=== PATIENT | male | born 2000 | race Two or more races ===

== ENCOUNTER 2018-04-16 14:25 | Emergency (ER) | payer BC, MEDICAID ==
--- NOTE | 2018-04-16 14:50 | ER Document Report ---
ED Medical Screen (RME) - General Chief Complaint: Vomiting Stated Complaint: ABDOMINAL PAIN Time Seen by Provider: 04/16/18 14:41 TRAVEL OUTSIDE OF THE [place] IN LAST 30 DAYS: No - HPI Patient complains to provider of: Abdominal pain Onset: Other - 17-year-old otherwise healthy man who took 4 tablets of Excedrin yesterday evening began to have bad abdominal pain around 2 AM this morning, he thereafter had a episode in which he vomited bright red blood, he has had persistent abdominal pain since that time. He is never had any problems like this before - Related Data Allergies/Adverse Reactions: No Known Allergies Allergy (Verified 04/16/18 14:48) Past Medical History - Social History Chew tobacco use (# tins/day): No Frequency of alcohol use: None Drug Abuse: None Renal/ Medical History: Denies: Hx Peritoneal Dialysis - Immunizations Immunizations up to date: Yes Physical Exam - Vital signs Vitals: Temp Pulse Resp BP Pulse Ox 98.5 F 63 16 142/78 H 100 04/16/18 14:38 04/16/18 14:38 04/16/18 14:38 04/16/18 14:38 04/16/18 14:38 Course - Re-evaluation Re-evalutation: 04/16/18 14:49 This is a 17-year-old with an episode of hematemesis after having taken Excedrin last night. I have greeted and performed a rapid initial assessment of this patient. A comprehensive ED assessment and evaluation of the patient, analysis of test results and completion of the medical decision making process will be conducted by additional ED providers - Vital Signs Vital signs: Temp Pulse Resp BP Pulse Ox 98.5 F 63 16 142/78 H 100 04/16/18 14:38 04/16/18 14:38 04/16/18 14:38 04/16/18 14:38 04/16/18 14:38
[2018-04-16 15:25] LABS: ABSOLUTE BASOPHILS # (AUTO) 0.1 10^3/uL (0.0-0.2); ABSOLUTE LYMPHOCYTES (AUTO) 1.9 10^3/uL (0.5-4.7); ABSOLUTE MONOCYTES (AUTO) 1.3 10^3/uL (0.1-1.4); ABSOLUTE NEUT (AUTO) 6.6 10^3/uL (1.7-8.2); BASOPHILS % (AUTO) 0.5 % (0-2); EOSINOPHILS % (AUTO) 0.3 % (0-6); HEMATOCRIT 42.8 % (37.9-51.0); HEMOGLOBIN 14.6 g/dL (13.5-17.0); LYMPHOCYTES % (AUTO) 19.4 % (13-45); MEAN CORPUSCULAR HEMOGLOBIN 29.7 pg (27.0-33.4); MEAN CORPUSCULAR HGB CONC 34.2 g/dL (32.0-36.0); MEAN CORPUSCULAR VOLUME 87 fl (80-97); MONOCYTES % (AUTO) 13.4 % (3-13); PLATELET COUNT 259 10^3/uL (150-450); RED BLOOD COUNT 4.93 10^6/uL (4.35-5.55); RED CELL DISTRIBUTION WIDTH 14.4 % (11.5-14.0); SEGMENTED NEUTROPHILS % (AUTO) 66.4 % (42-78); TOTAL CELLS COUNTED % (AUTO) 100 %
--- NOTE | 2018-04-16 15:26 | RADIOLOGY REPORT (SQ) ---
EXAM DESCRIPTION: CHEST SINGLE VIEW COMPLETED DATE/TIME: 04/16/2018 3:17 pm REASON FOR STUDY: concern for air under diaphragm COMPARISON: None. EXAM PARAMETERS: NUMBER OF VIEWS: One view. TECHNIQUE: Single frontal radiographic view of the chest acquired. RADIATION DOSE: NA LIMITATIONS: None. FINDINGS: LUNGS AND PLEURA: No opacities, masses or pneumothorax. No pleural effusion. MEDIASTINUM AND HILAR STRUCTURES: No masses. Contour normal. HEART AND VASCULAR STRUCTURES: Heart normal in size. Normal vasculature. BONES: No acute findings. HARDWARE: None in the chest. OTHER: No other significant finding. IMPRESSION: NO ACUTE RADIOGRAPHIC FINDING IN THE CHEST. TECHNICAL DOCUMENTATION: JOB ID: [id number] [employer]- All Rights Reserved Reading location - IP/workstation name: [email or web address]
[2018-04-16 15:43] LABS: ALANINE AMINOTRANSFERASE 40 U/L (10-40); ALBUMIN 4.5 g/dL (3.7-5.6); ALKALINE PHOSPHATASE 91 U/L (65-260); ANION GAP 12 (5-19); ASPARTATE AMINO TRANSFERASE 52 U/L (10-45); BILIRUBIN,DIRECT 0.1 mg/dL (0.0-0.4); BILIRUBIN,TOTAL 0.6 mg/dL (0.2-1.3); BLOOD UREA NITROGEN 14 mg/dL (7-20); CALCIUM 10.2 mg/dL (8.4-10.2); CARBON DIOXIDE 26 mmol/L (22-30); CHLORIDE 104 mmol/L (98-107); GLUCOSE 90 mg/dL (75-110); LIPASE 65.4 U/L (23-300); POTASSIUM 4.3 mmol/L (3.6-5.0); SODIUM 141.6 mmol/L (137-145); TOTAL PROTEIN 7.5 g/dL (6.3-8.2)
--- NOTE | 2018-04-16 15:43 | ER Document Report ---
ED General - General TRAVEL OUTSIDE OF THE [place] IN LAST 30 DAYS: No <SOFY CORONA - Last Filed: 04/16/18 19:02> <NUPUR OBRIEN - Last Filed: 04/16/18 23:33> - General Chief Complaint: Vomiting Stated Complaint: ABDOMINAL PAIN Time Seen by Provider: 04/16/18 14:41 - HPI Notes: Patient is a 17-year-old male with no significant past medical history who presents to the ED with concern of intermittent lower abdominal cramping with occasional sharp pain, one episode of hematemesis over the last day. Patient states that his episode of emesis took place this morning. Patient states that he did take a total of 4 tablets of Excedrin yesterday 2 of which were right before he went to bed. Patient states that after he woke up in the morning he had a pain in his lower mid abdomen which resulted in the nausea and vomiting x1. Patient states that he saw a small clump of blood in his vomit. He has not been nauseous or had any vomiting since. He has not had any black or tarry stools. Patient states that his stools are hard, small, and has bowel movements every other day. Patient states that his last bowel movement was this morning and he does have to "push." Patient states that he has been eating and drinking without any difficulties otherwise. He is urinating normally and is not sexually active. Denies drug allergies. Denies any headache, fever, neck pain, URI, sore throat, chest pain, palpitations, syncope , cough, shortness of breath, wheeze, dyspnea, diarrhea, urinary retention, dysuria, hematuria, back pain, loss of control of bowel or bladder, numbness/ tingling, saddle anesthesia, muscle paralysis/weakness, or rash. (SOFY CORONA) - Related Data Allergies/Adverse Reactions: No Known Allergies Allergy (Verified 04/16/18 14:48) Past Medical History - Social History Smoking Status: Never Smoker Chew tobacco use (# tins/day): No Frequency of alcohol use: None Drug Abuse: None Family History: Reviewed & Not Pertinent Patient has suicidal ideation: No Patient has homicidal ideation: No Renal/ Medical History: Denies: Hx Peritoneal Dialysis - Immunizations Immunizations up to date: Yes <SOFY CORONA - Last Filed: 04/16/18 19:02> Review of Systems - Review of Systems -: Yes All other systems reviewed and negative <SOFY CORONA - Last Filed: 04/16/18 19:02> Physical Exam <SOFY CORONA - Last Filed: 04/16/18 19:02> <NUPUR OBRIEN - Last Filed: 04/16/18 23:33> - Vital signs Vitals: Temp Pulse Resp BP Pulse Ox 98.5 F 63 16 142/78 H 100 04/16/18 14:38 04/16/18 14:38 04/16/18 14:38 04/16/18 14:38 04/16/18 14:38 - Notes Notes: PHYSICAL EXAMINATION: GENERAL: Well-appearing, well-nourished and in no acute distress. A&Ox4. Answers questions appropriately. HEAD: Atraumatic, normocephalic. EYES: Pupils equal round and reactive to light, extraocular movements intact, sclera anicteric, conjunctiva are normal. ENT: Nares patent and without discharge. oropharynx clear without exudates. No tonsilar hypertrophy or erythema. Moist mucous membranes. NECK: Normal range of motion, supple without lymphadenopathy LUNGS: Breath sounds clear to auscultation bilaterally and equal. No wheezes rales or rhonchi. HEART: Regular rate and rhythm without murmurs, rubs, gallops. ABDOMEN: Soft, nondistended abdomen. No guarding, no rebound. No masses appreciated. Normal bowel sounds present. + mild mid abd tenderness. No obvious tenderness at McBurney. Neg montejo. + mild left>Rt CVA tenderness. Musculoskeletal: FROM to passive/active. Strength 5+/5. Extremities: No cyanosis, clubbing, or edema b/l. Peripheral pulses 2+. Capillary refill less than 3 seconds. NEUROLOGICAL: Normal speech, normal gait. Normal sensory, motor exams PSYCH: Normal mood, normal affect. SKIN: Warm, Dry, normal turgor, no rashes or lesions noted. (SOFY CORONA) Course - Laboratory Result Diagrams: 04/16/18 14:58 04/16/18 17:30 <SOFY CORONA - Last Filed: 04/16/18 19:02> - Laboratory Result Diagrams: 04/16/18 14:58 04/16/18 17:30 <NUPUR OBRIEN - Last Filed: 04/16/18 23:33> - Re-evaluation Re-evalutation: 04/16/18 16:[address] Lopez. Pt's abd is soft and minimally tender to the mid abd/suprapubic area. He does have some mild CVA tenderness. His Creatinine is 1.52 and GFR 59. Sp [place] is 1.004 with small blood. His pain is not unilateral flank. He is non-toxic appearing and tolerating PO. We will start an IV and give 2L fluid and recheck BMP/Re-eval patient. 04/16/18 17:18 Re-eval on patient after 2L fluid given. Pt is having worsening RLQ specific pain. + tenderness near McBurney point. We will obtain an abd CT with oral/iv and recheck BMP to further evaluate. Dr. Lopez in agreement with plan. 04/16/18 19:02 Care transfer to [facility] (SOFY CORONA) CT shows signs of cholecystitis, ultrasound ordered. 04/16/18 22:[address] and ultrasound results with Dr. Zoe Barnhart via phone who states there is no signs of cholecystitis. 04/16/18 23:[address] Jeffrey who agrees with d/c with close follow up. Mother states patient does not have a primary care provider, phone numbers will be given. Discussed with mother need for follow-up in the next 24-48 hours for abdominal recheck. Discussed also returning to the emergency room should the abdominal pain return. Patient currently states he has no abdominal pain, is also not nauseated. (NUPUR OBRIEN) - Vital Signs Vital signs: Temp Pulse Resp BP Pulse Ox 98.7 F 59 L 16 133/79 H 100 04/16/18 19:18 04/16/18 19:18 04/16/18 19:18 04/16/18 19:18 04/16/18 19:18 - Laboratory Laboratory results interpreted by me: 04/16/18 04/16/18 04/16/18 14:58 14:58 14:58 RDW 14.4 H Monocytes % 13.4 H Chloride Creatinine 1.52 H Est GFR (Non-Af Amer) 59 L AST 52 H Urine Blood Acetaminophen < 10 L 04/16/18 04/16/18 15:30 17:30 RDW Monocytes % Chloride 111 H Creatinine 1.32 H Est GFR (Non-Af Amer) AST Urine Blood SMALL H Acetaminophen Discharge <SOFY CORONA - Last Filed: 04/16/18 19:02> <YI OBRIENCHIQUITAEVAALEC - Last Filed: 04/16/18 23:33> - Discharge Clinical Impression: Abdominal pain Qualifiers: Abdominal location: right lower quadrant Qualified Code(s): R10.31 - Right lower quadrant pain Condition: Stable Disposition: HOME, SELF-CARE Instructions: Abdominal Pain ([facility]), Observation for Appendicitis ([facility]) Additional Instructions: As we discussed you must be seen by a primary care provider in the next 24-48 hours for abdominal recheck. Please return to the emergency room should you have any worsening abdominal pain. Return to the emergency room for any other concerning symptoms. Referrals: ALLEN COWAN MD [ACTIVE STAFF] - Follow up as needed
[2018-04-16 15:46] LABS: APPEARANCE,URINE CLEAR; BILIRUBIN,URINE NEGATIVE (NEGATIVE); COLOR,URINE COLORLESS; GLUCOSE, URINE NEGATIVE (NEGATIVE); KETONES,URINE NEGATIVE (NEGATIVE); LEUKOCYTE ESTERASE,URINE NEGATIVE (NEGATIVE); NITRITE,URINE NEGATIVE (NEGATIVE); PROTEIN,URINE NEGATIVE (NEGATIVE); URINE SPECIFIC GRAVITY 1.004; UROBILINOGEN,URINE NEGATIVE mg/dL (<2.0)
--- NOTE | 2018-04-16 15:46 | RADIOLOGY REPORT (SQ) ---
EXAM DESCRIPTION: KUB/ABDOMEN (SINGLE VIEW) COMPLETED DATE/TIME: 04/16/2018 3:26 pm REASON FOR STUDY: constipated mid abdominal pain, vomiting COMPARISON: None. NUMBER OF VIEWS: One view. TECHNIQUE: Supine radiographic image of the abdomen acquired. LIMITATIONS: None. FINDINGS: BOWEL GAS PATTERN: Normal bowel gas pattern. No dilated loops. Minimal stool in the ascen ding colon. CALCIFICATIONS: No suspicious calcifications. SOFT TISSUES: No gross mass or suggestion of organomegaly. HARDWARE: None in the abdomen. BONES: No acute fracture. No worrisome bone lesions. OTHER: No other significant finding. IMPRESSION: NO RADIOGRAPHIC EVIDENCE FOR ACUTE ABDOMINAL DISEASE. NO CONSTIPATION TECHNICAL DOCUMENTATION: JOB ID: [id number] [email or web address]- All Rights Reserved Reading location - IP/workstation name: [email or web address]
[2018-04-16 16:31] LABS: INTERNATIONAL RATION (INR) 0.97; PROTHROMBIN TIME 13.4 SEC (11.4-15.4)
[2018-04-16 16:32] LABS: PARTIAL THROMBOPLASTIN TIME 29.5 SEC (23.5-35.8)
[2018-04-16] MEDS: NORMAL SALINE 1000 ML 1,000 ML IV PRN ×2 (16:49→16:50)
[2018-04-16 17:52] LABS: ANION GAP 7 (5-19); BLOOD UREA NITROGEN 13 mg/dL (7-20); CALCIUM 8.8 mg/dL (8.4-10.2); CARBON DIOXIDE 22 mmol/L (22-30); CHLORIDE 111 mmol/L (98-107); GLUCOSE 85 mg/dL (75-110); POTASSIUM 4.6 mmol/L (3.6-5.0); SODIUM 140.3 mmol/L (137-145)
[2018-04-16] MEDS ORDERED: ONDANSETRON HCL INJ/PF 4 MG/2 ML SDV IV ONE (18:42)
[2018-04-16] MEDS ORDERED: KETOROLAC TROMETHAMINE INJ/PF 30 MG/1 ML SDV IV ONE (18:42)
--- NOTE | 2018-04-16 20:48 | RADIOLOGY REPORT (SQ) ---
EXAM DESCRIPTION: CT ABD/PELVIS WITH IV ORAL COMPLETED DATE/TIME: 04/16/2018 8:19 pm REASON FOR STUDY: RLQ pain COMPARISON: None. TECHNIQUE: CT scan of the abdomen and pelvis performed using helical scanning technique with dynamic intravenous contrast injection. No oral contrast. Images reviewed with lung, soft tissue, and bone windows. Reconstructed coronal and sagittal MPR images reviewed. Delayed images for evaluation of the urinary system also acquired. All images stored on PACS. All CT scanners at this facility use dose modulation, iterative reconstruction, and/or weight based d osing when appropriate to reduce radiation dose to as low as reasonably achievable (ALARA). [facility]: Dose Right [facility]: CareDose [facility]: Dose Right [facility]: Teradose 4D [facility]: ecoVent CONTRAST TYPE AND DOSE: contrast/concentration: Isovue 350.00 mg/ml; Total Contrast Delivered: 79.0 ml; Total Saline Delivered: 68.0 ml RENAL FUNCTION: BUN 14; creatinine 1.52 RADIATION DOSE: CT Rad equipment meets quality standard of care and radiation dose reduction techniq ues were employed. CTDIvol: 5.2 - 6.6 mGy. DLP: 641 mGy-cm.. LIMITATIONS: None. FINDINGS: LOWER CHEST: No significant findings. No nodules or infiltrates. LIVER: Normal size. No masses. No dilated ducts. SPLEEN: Normal size. No focal lesions. PANCREAS: No masses. No significant calcifications. No adjacent inflammation or peripancreatic fluid collections. Pancreatic duct not dilated. GALLBLADDER: No identified stones by CT criteria. Note is made of pericholecystic fluid without defi nite mural thickening or hyperemia. ADRENAL GLANDS: No significant masses or asymmetry. RIGHT KIDNEY AND URETER: No solid masses. No significant calcifications. No hydronephrosis or hyd roureter. LEFT KIDNEY AND URETER: No solid masses. No significant calcifications. No hydronephrosis or hydr oureter. AORTA AND VESSELS: No aneurysm. No dissection. Renal arteries, SMA, celiac without stenosis. RETROPERITONEUM: No retroperitoneal adenopathy, hemorrhage or masses. BOWEL AND PERITONEAL CAVITY: No masses or inflammatory changes. No free fluid or peritoneal masses. APPENDIX: Normal. PELVIS: No mass. No free fluid. Normal bladder. ABDOMINAL WALL: No masses. No hernias. BONES: No significant or acute findings. OTHER: No other significant finding. IMPRESSION: Fluid seen within the gallbladder fossa suggests cholecystitis. No infectious/ inflamma tory findings within the right lower quadrant. The appendix is well visualized and normal in appeara nce. TECHNICAL DOCUMENTATION: JOB ID: [id number] Quality ID # [id number]: Final reports with documentation of one or more dose reduction techniques (e.g., Au tomated exposure control, adjustment of the mA and/or kV according to patient size, use of iterative reconstruction technique) 2010 [employer]- All Rights Reserved Reading location - IP/workstation name: [email or web address]
--- NOTE | 2018-04-16 21:54 | RADIOLOGY REPORT (SQ) ---
EXAM DESCRIPTION: US ABDOMEN DOPPLER LIMITED COMPLETED DATE/TME: 04/16/2018 21:01 CLINICAL HISTORY: 17 years, Male, RUQ pain Findings: Pancreas is within normal limits. Aorta and IVC are within normal limits. Liver is unremarkable with no focal lesions. Portal vein is patent with hepatopedal flow. Gallbladder is unremarkable with no evidence for calculus, wall thickening or pericholecystic fluid. No significant biliary dilatation with CBD measuring 2 mm. No right hydronephrosis. No right upper quadrant ascites. IMPRESSION: No evidence for cholelithiasis or cholecystitis.
[2018-04-16 23:41] VITALS: BP 135/73
== END 2018-04-16 23:41 | disposition home or self-care (01) ==
LOC: ER 14:25
DX: R10.31 Right lower quadrant pain (principal); K92.0 Hematemesis; Z79.899 Other long term (current) drug therapy
CPT/HCPCS: 99284; 96361; 96374; 96375; 86900; 86901; 36415; 86850; 83690; 80307; 85025; 85610; 85730; 80048; 80053; 81001; 71045; 74018; 76705; 93976; 74177; J1885; J2405; J7030